=== PATIENT | male | born 1960 | race Caucasian/White ===

== ENCOUNTER 2021-05-08 14:08 | Emergency (ER) | payer MEDICARE, MEDICAID ==
[~2021-05-08] VITALS: Ht 180.3 cm; Wt 57.7 kg
[~2021-05-08 14:08] MED LIST: ALBU8.5H17 INH; BUDE10.2 INH
[2021-05-08] MEDS ORDERED: methylPREDNISolone sod succ 125mg/2ml vial IV ONE (14:40)
[2021-05-08] MEDS ORDERED: CefTRIAXone/D5W-Rocephin 1gm 50 ML IV ONE (14:40)
[2021-05-08] MEDS ORDERED: albuterol 2.5 MG/3 ML nebule CONTNEB PRN (14:40)
[2021-05-08] MEDS ORDERED: azithromycin/NS 500mg/250ml 250 ML IV ONE (14:45)
[2021-05-08 14:50] LABS: BASOPHILS # (AUTO) 0.1 X10'3 (0-0.2); BASOPHILS % (AUTO) 0.7 % (0-1); EOSINOPHILS # (AUTO) 0.2 X10'3 (0-0.9); EOSINOPHILS % (AUTO) 2.2 % (0-6); HEMATOCRIT 55.4 % (42.0-52.0); LYMPHOCYTES # (AUTO) 0.7 X10'3 (1.1-4.8); LYMPHOCYTES % (AUTO) 9.1 % (21-51); MEAN CORPUSCULAR HGB CONC 32.9 g/dL (33.0-36.5); MEAN CORPUSCULAR VOLUME 100.1 FL (78-98); MONOCYTES # (AUTO) 0.4 X10'3 (0-0.9); NEUTROPHILS # (AUTO) 6.3 X10'3 (1.8-7.7); PLATELET COUNT 229 X10'3 (140-440); RED BLOOD COUNT 5.53 X10'6 (4.70-6.10); RED CELL DISTRIBUTION WIDTH 17.5 % (11.5-14.5); WHITE BLOOD COUNT 7.5 X10'3 (4.5-11.0)
[2021-05-08 14:55] LABS: HEMOGLOBIN 18.2 g/dl (14.0-17.9)
[2021-05-08 15:06] LABS: ALANINE AMINOTRANSFERASE 39 U/L (12-78); ALBUMIN 3.8 G/DL (3.4-5.0); ALKALINE PHOSPHATASE 115 IU/L (46-116); ANION GAP 4 (8-16); ASPARTATE AMINO TRANSFERASE 61 U/L (10-37); BILIRUBIN,TOTAL 0.5 MG/DL (0.1-1.0); BLOOD UREA NITROGEN 8 MG/DL (7-18); BUN/CREATININE RATIO 11.6 (5.4-32.0); CALCIUM 8.8 MG/DL (8.5-10.1); CHLORIDE 100 MMOL/L (99-107); CREATININE 0.69 MG/DL (0.60-1.10); GLUCOSE 190 MG/DL (70-104); POTASSIUM 4.3 MMOL/L (3.5-5.1); SODIUM 139 MMOL/L (135-145); TOTAL CARBON DIOXIDE 35.4 MMOL/L (24-32); TOTAL PROTEIN 7.8 G/DL (6.4-8.2); eGFR > 90 ML/MIN
[2021-05-08 15:08] LABS: ABG OXYGEN SATURATION 97.4 % (94-97); ABG PCO2 (T) 54.3 mmHg (35.0-48.0); ABG PO2 (T) 103.4 mmHg (75.0-100.0); ALLEN'S TEST POSITIVE; FCOHb 5.6 % (0.0-3.9); FLOW 8 L/min; FMetHb 0.3 % (0.0-1.5); FO2Hb 91.7 % (94-97)
[2021-05-08 15:21] LABS: D-DIMER 5.06 MG/L FEU (0-0.50)
[2021-05-08] MEDS ORDERED: iohexol 350MG/ML 100ml bottle IV ONE (16:05)
[2021-05-08] MEDS ORDERED: CEFD300C3 PO (17:56)
[2021-05-08] MEDS ORDERED: PRED20TA PO (17:56)
[2021-05-08 18:22] VITALS: BP 114/70
== END 2021-05-08 18:28 | disposition home or self-care (01) ==
LOC: ER 14:09
DX: J44.1 Chronic obstructive pulmonary disease with (acute) exacerbation (principal); Z20.822 Contact with and (suspected) exposure to COVID-19; J96.10 Chronic respiratory failure, unspecified whether with hypoxia or hypercapnia; R91.1 Solitary pulmonary nodule; M79.89 Other specified soft tissue disorders; R05 Cough; R50.9 Fever, unspecified; Z72.0 Tobacco use; Z72.89 Other problems related to lifestyle; Z79.899 Other long term (current) drug therapy
CPT/HCPCS: 36415; 36600; 71045; 71275; 80053; 82803; 83605; 83880; 84484; 85018; 85025; 85379; 87040; 87635; 93005; 94640; 94644; 96365; 96366; 96368; 96375; 99285; C9803; J0456; J0696; J2930; Q9967; 94760; A7015

== ENCOUNTER 2021-06-04 13:47 | Emergency (ER) | payer MEDICARE, MEDICAID ==
[~2021-06-04] VITALS: Ht 180.3 cm; Wt 62.8 kg
[~2021-06-04 13:47] MED LIST changes: +CEFD300C3 PO; +PRED20TA PO
[2021-06-04 14:46] VITALS: BP 121/74
[2021-06-04 15:25] LABS: BASOPHILS % (AUTO) 0.6 % (0-1); EOSINOPHILS # (AUTO) 0.1 X10'3 (0-0.9); EOSINOPHILS % (AUTO) 0.7 % (0-6); HEMATOCRIT 57.3 % (42.0-52.0); LYMPHOCYTES # (AUTO) 0.8 X10'3 (1.1-4.8); LYMPHOCYTES % (AUTO) 10.3 % (21-51); MEAN CORPUSCULAR HEMOGLOBIN 32.9 PG (27.0-31.0); MEAN CORPUSCULAR HGB CONC 32.2 g/dL (33.0-36.5); MEAN CORPUSCULAR VOLUME 102.1 FL (78-98); MEAN PLATELET VOLUME 8.9 FL (7.4-10.4); MONOCYTES # (AUTO) 0.6 X10'3 (0-0.9); MONOCYTES % (AUTO) 7.7 % (2-12); NEUTROPHILS % (AUTO) 80.7 % (42-75); PLATELET COUNT 166 X10'3 (140-440); RED BLOOD COUNT 5.61 X10'6 (4.70-6.10); RED CELL DISTRIBUTION WIDTH 16.4 % (11.5-14.5); WHITE BLOOD COUNT 7.4 X10'3 (4.5-11.0)
[2021-06-04 15:28] LABS: HEMOGLOBIN 18.5 g/dl (14.0-17.9)
[2021-06-04 15:36] LABS: ALANINE AMINOTRANSFERASE 37 U/L (12-78); ALBUMIN 3.4 G/DL (3.4-5.0); ALBUMIN/GLOBULIN RATIO 0.9 (1.1-1.5); ALKALINE PHOSPHATASE 110 IU/L (46-116); ANION GAP 3 (8-16); ASPARTATE AMINO TRANSFERASE 67 U/L (10-37); BILIRUBIN,TOTAL 0.5 MG/DL (0.1-1.0); BLOOD UREA NITROGEN 18 MG/DL (7-18); BUN/CREATININE RATIO 20.2 (5.4-32.0); CALCIUM 8.6 MG/DL (8.5-10.1); CHLORIDE 104 MMOL/L (99-107); CREATININE 0.89 MG/DL (0.60-1.10); GLUCOSE 91 MG/DL (70-104); POTASSIUM 5.1 MMOL/L (3.5-5.1); SODIUM 140 MMOL/L (135-145); TOTAL CARBON DIOXIDE 33.5 MMOL/L (24-32); TOTAL PROTEIN 7.2 G/DL (6.4-8.2); eGFR 88 ML/MIN
== END 2021-06-04 21:22 | disposition left against medical advice (07) ==
LOC: ER 13:48
DX: R22.40 Localized swelling, mass and lump, unspecified lower limb (principal); Z53.21 Procedure and treatment not carried out due to patient leaving prior to being seen by health care provider
CPT/HCPCS: 36415; 71045; 80053; 83880; 84484; 85025; 93005